=== PATIENT | female | born 1985 | race Caucasian/White ===

== ENCOUNTER → 2021-01-14 16:13 | Outpatient (CLI) | payer OTHER, SELFPAY ==
[2021-01-14 14:31] VITALS: BMI 36.3
[2021-01-18 14:20] LABS: HPV APTIMA, High Risk Negative (Negative)
== END ==
LOC: LAB 16:15 → LABSPEC 16:16
PROVIDERS: PCP Internal Medicine; Referring Provider Nurse Practitioner Women's Health; Visit Provider Nurse Practitioner Women's Health
DX: Z12.4 Encounter for screening for malignant neoplasm of cervix (principal)
CPT/HCPCS: 87624; 88175; G0145

== ENCOUNTER → 2025-09-18 | Outpatient (CLI) | payer OTHER, SELFPAY ==
[2025-09-18 11:06] LABS: Hematocrit 40.8 % (37-47); Hemoglobin 14.0 g/dL (12.0-15.0); Immature Granulocytes Count 0.010 X10^3/uL (0.0-0.0); Mean Corp Hgb Conc 34.3 g/dL (32-36); Mean Corpuscular Volume 93.8 fL (81-99); Mean Platelet Vol. 10.2 fl (6.2-12.0); NRBC Flagged by Analyzer 0 % (0-5); POSITIVE COUNT YES; Platelet Count 118 K/mm3 (150-450); Prothrombin Time (Protime)PT. 13.6 SECONDS (11.7-14.9); RBC Distribution Width CV 12.1 % (11.6-14.6); RBC Distribution Width SD 42.2 fl (35.1-43.9); Red Blood Count 4.35 M/mm3 (4.2-5.4); White Blood Count 6.4 K/mm3 (4.4-11.0)
[2025-09-18 11:19] LABS: Differential Indicated SCAN CRITERIA MET
[2025-09-18 12:35] LABS: AST(SGOT) 161 U/L (<=31); Alanine Aminotransfer ALT/SGPT 147 U/L (<=34); Albumin, Serum 4.0 g/dL (3.5-5.0); Alkaline Phosphatase 164 U/L (35-104); Anion Gap 13 (5-15); BUN 5 mg/dL (4-19); BUN/Creat Ratio 10.6 RATIO (10-20); Calcium,Total 9.0 mg/dL (7.6-11.0); Carbon Dioxide 22.2 mmol/L (21.0-32.0); Chloride 101 mmol/L (98-108); Cholesterol 123 mg/dL (<=200); Ferritin 91 ng/mL (22-378); Globulin 3.1 g/dL (2.2-4.2); Glucose 110 mg/dL (70-99); HIV Nonreactive (Nonreactive); Low Density Lipoprotein Calc. 57 mg/dL; Potassium 4.3 mmol/L (3.3-5.1); Syphilis Antibodies Nonreactive (Nonreactive); Triglycerides 78 mg/dL; Very Low Density Lipoprotein 16 mg/dL (5-40); Vitamin B12 705 pg/mL (180-914); Vitamin D,25 Hydroxy 26.0 ng/mL (30-100); cholesterol:hdl ratio screen 2.46
[2025-09-18 13:12] LABS: Iron 104 ug/dL (50-170); Iron Binding Capacity,Total 365 ug/dL (250-450); Iron Binding Capacity,Unsat 261 ug/dL (228-428)
[2025-09-26 11:09] LABS: HCV Quant. RNA PCR 1170000 IU/mL (.); HEPATITIS B SURFACE AG Negative (Negative); Hep C Antibodies Reactive (Non Reactive)
== END | disposition home or self-care (01) ==
PROVIDERS: PCP Pediatrics; Referring Provider Pediatrics; Visit Provider Pediatrics
DX: B18.2 Chronic viral hepatitis C (principal); R53.83 Other fatigue; Z76.89 Persons encountering health services in other specified circumstances
CPT/HCPCS: 36415; 80053; 80061; 80074; 82105; 82306; 82607; 82728; 83036; 83540; 83550; 84439; 84443; 85025; 85610; 86703; 86706; 86708; 86780; 87522; 87902